=== PATIENT | male | born 1950 | race African-American/Black ===

== ENCOUNTER 2018-07-09 16:42 | Inpatient (IN) ==
[2018-07-09 17:07] LABS: Basophils % 0.6 % (0.0-0.8); Eosinophils # 0.1 10*3/uL (0.0-0.87); Hematocrit 38.3 VOL% (42.0-52.0); Hemoglobin 12.1 GM/DL (14.0-18.0); Immature Granulocytes % 0.3 %; Immature Granulocytes Absolute 0.02 #; Lymphocytes # 1.3 10*3/uL (1.4-4.0); Lymphocytes % 19.3 % (21.2-54.2); Mean Corpuscular HGB Conc 31.6 GM/DL (32-36); Mean Corpuscular Hemoglobin 28 PG (27-34); Mean Corpuscular Volume 89.9 FL (87-102); Mean Platelet Volume 11.7 FL (9.6-12.0); Monocytes # 0.4 10*3/uL (0.11-0.8); Monocytes % 5.9 % (1.7-12.7); Neutrophils % 72.9 % (38.7-73.9); Platelet Count 210 T/CUMM (130-400); Red Blood Count 4.26 MC/CUMM (3.8-5.5); Red Cell Distribution Width 14.7 % (9.3-17.3); White Blood Count 6.8 T/CUMM (4-12)
[2018-07-09 17:16] LABS: INR 1.3; Partial Thromboplastin Time 30.4 SECS (0-40)
[2018-07-09 17:31] LABS: Alanine Aminotransferase 19 U/L (16-61); Albumin 3.5 G/DL (3.4-5.0); Alkaline Phosphatase 73 U/L (45-117); Aspartate Amino Transferase 19 U/L (0-37); Bilirubin,Total < 0.39 MG/DL (0.2-1.0); Blood Urea Nitrogen 18 MG/DL (7-18); Calcium 8.5 MG/DL (8.5-10.1); Glucose 170 MG/DL (74-106); Osmolality,Calculated 288.1 MOS/KG (273-304); Potassium 3.8 MMOL/L (3.5-5.1); Sodium 142 MMOL/L (136-145); Total Protein 7.6 G/DL (6.4-8.3)
[2018-07-09] MEDS ORDERED: ALTEPLASE 100 MG/100 ML BOTTLE ONE (17:36)
[2018-07-09] MEDS ORDERED: ASPIRIN 300 MG SUPP RECTAL STA (17:44)
[2018-07-09] MEDS ORDERED: ALTEPLASE 81 MG in PREMIX 1 EACH IV ONE (17:44)
[2018-07-09] MEDS ORDERED: ALTEPLASE 9 MG in PREMIX 1 EACH IV ONE (17:44)
[2018-07-09] MEDS ORDERED: hydrALAZINE 20 MG/1 ML VIAL ONE (17:49)
[2018-07-09] MEDS ORDERED: hydrALAZINE 20 MG/1 ML VIAL IV STA (17:54)
[2018-07-09] MEDS ORDERED: LABETALOL 20 MG/4 ML SYRINGE IV PRN (18:22)
[2018-07-09] MEDS ORDERED: niCARdipine INJ 25 MG in SODIUM CHLORIDE 0.9% 240 ML IV PRN (18:22)
[2018-07-09] MEDS ORDERED: SODIUM CHLORIDE 0.9% 1,000 ML IV SCH (18:30)
[2018-07-09] MEDS ORDERED: DEXTROSE 50% 25 GM/50 ML VIAL IV PRN (18:35)
[2018-07-09] MEDS ORDERED: GLUCAGON 1 MG VIAL IM PRN (18:35)
[2018-07-09 19:22] LABS: Apearance,Urine CLEAR (Clear); Bilirubin,Urine Negative (Negative); Blood, Urine Moderate mg/dL (Negative); Glucose,Urine (UA) Negative (Negative); Ketones,Urine Negative (Negative); Nitrite,Urine Negative (Negative); Protein,Urine 100 MG/DL; RBC,Urine 151 /HPF (0-4); Urine Color Yellow (Yellow); Urine Specific Gravity 1.021 (1.001-1.035); WBC,Urine 1 /HPF (0-6)
[2018-07-09 19:26] LABS: Barbiturates Screen,Urine Negative (Negative); Benzodiazepines Screen,Urine Negative (Negative); Cannabinoid Screen,Urine Negative (Negative); Opiate Screen,Urine Negative (Negative); Phencyclidine Screen,Urine Negative (Negative)
[2018-07-09] MEDS ORDERED: ATORVASTATIN 40 MG TABLET PO SCH (21:00)
[2018-07-09] MEDS ORDERED: LEVOTHYROXINE 100 MCG VIAL IV SCH (21:00)
[2018-07-09] MEDS ORDERED: ONDANSETRON 4 MG/2 ML VIAL ONE ×2 (22:15→22:25)
[2018-07-09] MEDS ORDERED: ONDANSETRON 4 MG/2 ML VIAL IV ONE ×2 (22:20→22:27)
[2018-07-09] MEDS ORDERED: ETOMIDATE 20 MG/10 ML VIAL IV ONE ×2 (22:27→22:31)
[2018-07-09] MEDS ORDERED: ATROPINE 1 MG/10 ML SYRINGE IV ONE (22:27)
[2018-07-09] MEDS ORDERED: PROPOFOL 1,000 MG/100 ML BOTTLE IV ONE (22:37)
[2018-07-09] MEDS ORDERED: PROPOFOL 1,000 MG/100 ML BOTTLE IV SCH (22:40)
[2018-07-10] MEDS ORDERED: INSULIN REGULAR 100 UNIT/ML SUBCUT SCH
[2018-07-10] MEDS ORDERED: PROPOFOL 1,000 MG/100 ML BOTTLE IV PRN (01:51)
[2018-07-10] MEDS ORDERED: PROPOFOL 1,000 MG/100 ML BOTTLE IV SCH (01:51)
[2018-07-10 05:21] VITALS: BP 169/73
[2018-07-10] MEDS ORDERED: MORPHINE 4 MG/1 ML VIAL IV PRN (08:17)
[2018-07-10] MEDS ORDERED: LORazepam 2 MG/1 ML VIAL IV PRN (08:18)
[2018-07-10] MEDS ORDERED: ASPIRIN 300 MG SUPP RECTAL SCH (18:00)
== END 2018-07-10 09:08 | disposition expired | DRG 61 ==
LOC: EDUNIT# → EDBD → N.ED 16:42 → N.EDINP 18:18 → N.ICU 19:30
PROVIDERS: ADMIT Internal Medicine; ATTEND Internal Medicine